=== PATIENT | male | born 1960 | race Caucasian/White ===

== ENCOUNTER → 2023-06-11 17:11 | Outpatient (REF) | payer OTHER, SELFPAY | LOC: RAD 17:11 | PROVIDERS: ATTENDING PHYSICIAN Internal Medicine Critical Care Medicine; FAMILY PHYSICIAN Family Medicine | DX: R91.1 Solitary pulmonary nodule (principal) | CPT/HCPCS: 71250 ==

== ENCOUNTER 2023-07-14 06:47 | Day surgery (SDC) | payer OTHER, SELFPAY ==
[2023-07-09 08:33] VITALS: BMI 30.9
[2023-07-09 08:57] LABS: Hematocrit 43.3 % (39.0-52.0); Hemoglobin 14.9 g/dL (13.0-18.0); Mean Corp Hgb Conc. 34.4 g/dL (33.0-37.0); Mean Corpuscular Hgb 30.2 pg (27.0-31.0); Mean Corpuscular Volume 87.8 fL (80.0-94.0); Mean Platelet Volume 10.2 fL (7.4-10.4); Platelet Count 282 10^3/uL (130-400); Red Blood Cell Count 4.93 10^6/uL (4.70-6.10); Red Cell Dist. Width 13.2 % (11.5-14.5); White Blood Cell Count 6.1 10^3/uL (4.8-10.8)
[2023-07-09 09:08] LABS: INR 1.02; PT 13.5 Sec (11.4-14.6)
[2023-07-09 09:09] LABS: APTT 33.6 Sec (23.4-35.0)
[2023-07-09 10:24] LABS: Blood Urea Nitrogen 27 mg/dl (9-20); Calcium 9.8 mg/dl (8.4-10.2); Carbon Dioxide 27 mmol/L (22-30); Chloride 104 mmol/L (98-107); Estimated Creatinine Clearance 84 ml/min; Glucose 89 mg/dl (70-99); Potassium 4.3 mmol/L (3.5-5.1); Sodium 136 mmol/L (135-145); eGFR > 60.00
[2023-07-14 10:45] VITALS: BP 142/86; BMI 30.6
[2023-07-14 10:56] VITALS: BMI 30.6
[2023-07-14 13:30] VITALS: BP 120/71; BP 142/86
[2023-07-14 13:46] VITALS: BP 117/63
[2023-07-14 14:04] VITALS: BP 130/62
[2023-07-14 14:15] VITALS: BP 142/72
[2023-07-14 14:30] VITALS: BP 142/66
== END 2023-07-14 14:45 | disposition home or self-care (01) ==
LOC: GI 06:47
PROVIDERS: ATTENDING PHYSICIAN Internal Medicine Critical Care Medicine; FAMILY PHYSICIAN Family Medicine; OTHER PHYSICIAN Internal Medicine Critical Care Medicine
DX: R91.1 Solitary pulmonary nodule (principal); R59.0 Localized enlarged lymph nodes
CPT/HCPCS: 31629; 31623; 31627; 31625; 31652; 31624; 88173; 88305; 88312; 36415; 71045; 76000; 80048; 85027; 85610; 85730; 87015; 87070; 87102; 87116; 87205; 88112; 88333; 88334; 88341; 88342; 93005; 94640; C1887

== ENCOUNTER → 2024-02-06 06:22 | Day surgery (SDC) | payer OTHER, SELFPAY | LOC: GI 06:22 | PROVIDERS: ATTENDING PHYSICIAN Internal Medicine Gastroenterology | DX: Z12.11 Encounter for screening for malignant neoplasm of colon (principal); K63.5 Polyp of colon; K57.30 Diverticulosis of large intestine without perforation or abscess without bleeding; K64.8 Other hemorrhoids; Z86.0100 Personal history of colon polyps, unspecified | CPT/HCPCS: 45380; 88305 ==